=== PATIENT | female | born 1975 | race Caucasian/White ===

== ENCOUNTER 2016-09-28 14:51 | Emergency (ER) | payer OTHER ==
--- NOTE | ~2016-09-28 | CT98 ---
[facility] A Service of [facility] & [facility] RADIOLOGY TEXT RESULTS PATIENT: SHANIQUA MENDENHALL LOCATION: SED : 77 UNIT #: [id number] AGE: [address]: Katy Taylor SEX: F ORDER DR: [id number] [id number] MR#: [id number] Acc #: [id number] NAME: SHANIQUA MENDENHALL. : 1975 SEX: F STUDY DATE/TIME: 09/28/2016 15:14 UNIT: SED ROOM: STUDY DESCRIPTION: CT Lumbar Spine Wo Cont Attending Physician: Katy Taylor Pa-C Referring Physician: Katy Taylor Pa-C Ordering Physician: Physician Non-Staff Primary Care Physician: Leo Paulino M.D. MEDICAL IMAGING REPORT This report is preliminary unless electronic signature is present. EXAM CT lumbar spine, 09/28/2016 HISTORY Lower back pain radiating into left leg for [address] exam was performed with one or more of the following radiation dose reduction techniques: Automatic exposure control, adjustment of mA and/or kV according to patient size, and iterative reconstruction. CT lumbar spine performed. Bone/soft tissue windows reviewed. Sagittal/coronal reconstructions performed. Comparison to lumbar spine series 08/06/[address] abdomen/pelvis 05/09/2016. The visualized portions of lung bases, liver, spleen, pancreas, adrenal glands unremarkable. Status post cholecystectomy. There are nonobstructing right renal calculi, largest measuring about 2 mm in the right lower renal pole. Not significantly changed. No adenopathy. Visualized alimentary canal unremarkable. 5 lumbar-type vertebral segments. There is mild, about 3 mm retrolisthesis of L5 on S1 not significantly changed and felt secondary to marked L5-S1 intervertebral disc degenerative change and milder facet degenerative change. No fracture. Vertebral body heights are normal. Intervertebral disc spaces are normal, with exception of marked narrowing L5-S1. Associated vacuum disc phenomena L5-S1. Not mentioned above, there are multiple surgical clips associated with the proximal stomach unchanged from prior CT abdomen and pelvis. T11-T12, T12-L1, L1-L2, L2-L3: Minimal posterior left paracentral disc bulging L2-L3. No spinal stenosis. The neural foramina appear patent without evidence of exiting nerve impingement. L3-L4: Mild posterior concentric disc bulge. Mild mass effect on thecal STS. [facility] A Service of [facility] & [facility] RADIOLOGY TEXT RESULTS PATIENT: SHANIQUA MENDENHALL LOCATION: [facility] : [birth year] UNIT #: [id number] AGE: [address]: Katy Taylor SEX: F ORDER DR: kleber with no spinal stenosis. The neural foramina are patent without evidence of exiting nerve impingement. L4-L5: Mild posterior concentric disc bulge. Minimal mass effect on thecal sac with no spinal stenosis. Mild facet/ligamentum flavum hypertrophic change. Mild foraminal narrowing without evidence of intraforaminal nerve impingement. L5-S1: Retrolisthesis as noted with posterior disc-osteophyte complex. No spinal stenosis. Narrowing of the bilateral neural foramina. Bilateral exiting nerve irritation or mackenzie impingement is a consideration. Correlate with L5 dermatomal symptoms. IMPRESSION 1. There is no evidence of traumatic fracture or malalignment. Stable degenerative approximately 3 mm retrolisthesis L5 on S1 felt secondary to disc and facet degenerative changes. See details above. 2. Multilevel mild disc degenerative changes. See [id number] descriptions in body of report. Posterior disc-osteophyte complex in conjunction with the retrolisthesis at L5-S1. There is no resulting spinal stenosis. Due to the retrolisthesis and facet degenerative changes, there is narrowing of the bilateral L5-S1 neural foramina. This is swamvimm-pj-[id number] in degree and there is probably some degree of mass effect on the bilateral exiting L5 nerves. L5 irritation or mackenzie impingement is a consideration. Correlate with L5 dermatomal symptoms. 3. Nonobstructing right renal calculi as above. 4. Post cholecystectomy. 5. Prior gastric surgery. These findings not appear grossly changed from CT examination in April 2016. Dictated by... Nelson Pino M.D. THIS IS AN ELECTRONICALLY VERIFIED REPORT Nelson Pino M.D. at 09/28/2016 10:42 PM ELROY/armando TD: 09/28/2016 19:20 JOB #: [id number] MEDICAL IMAGING REPORT Page 1 of 1
[~2016-09-28 14:51] MED LIST: AMOXICILLIN500 M1 PO; ANIMAL SHAPES1 EAC2; ANTIBIOTIC PO; ANTIVERT PO; BACTRIM DS TABL1 TA1 PO; BENTYL10 M1 PO; BISA-LAX5 MG PO; CELEXA PO; DARVOCET-N 1001 TAB; DEPAKOTE250 MG; DICLOFENAC PO; FLAGYL; FLEXERIL; FLEXERIL PO; GABAPENTIN; IRON1 TA1; IRON1 TAB PO; KEPPRA500 M1 PO; KEPPRA500 MG PO; LINZESS145 MCG PO; MULTI VITAMIN1 EACH; MULTI-DAY1 TAB PO; NAPROXEN PO; NEURONTIN300 MG PO; NO MEDICATIONS; NORCO1 TAB 10/3; PEPCID AC20 M2 PO; PHENERGAN; PHENERGAN25 M1 PO; PHENERGAN25 MG; PHENERGAN25 MG PO; PRENATAL1 TA1 PO; PRILOSEC; PRILOSEC PO; ROBAXIN 750750 M1 DOB; SKELAXIN PO; TYLENOL #3 PO; ULTRAM PO; VITAMIN D400 UNI2; VOLTAREN25 MG PO; ZOLOFT; [UNRECOGNIZED DRUG - OTHER]
== END 2016-09-28 17:19 | disposition home or self-care (01) ==
LOC: SED 14:51
DX: M54.5 Low back pain (principal); Z88.5 Allergy status to narcotic agent; Z79.899 Other long term (current) drug therapy
CPT/HCPCS: 72131; 96372; 99284; J1040; J1885

== ENCOUNTER 2017-02-06 14:06 | Emergency (ER) | payer OTHER ==
[2017-02-06] MEDS ORDERED: PRILOSEC PO (14:21)
[2017-02-06] MEDS ORDERED: TRAMADOL PO (14:21)
[2017-02-06] MEDS ORDERED: CYMBALTA PO (14:21)
== END 2017-02-06 15:20 | disposition home or self-care (01) ==
LOC: SED 14:06
DX: M54.5 Low back pain (principal); Z90.49 Acquired absence of other specified parts of digestive tract; D64.9 Anemia, unspecified; Z90.710 Acquired absence of both cervix and uterus; Z88.5 Allergy status to narcotic agent; Z88.8 Allergy status to other drugs, medicaments and biological substances; Z79.899 Other long term (current) drug therapy
CPT/HCPCS: 96372; 99283; J1885; J2360